=== PATIENT | male | born 1985 | race Caucasian/White ===

== ENCOUNTER 2018-11-17 23:29 | Emergency (ER) | payer BC, OTHER ==
[~2018-11-17] VITALS: Ht 172.7 cm; Wt 68.0 kg
[2018-11-17 23:44] VITALS: BP 122/80
--- NOTE | 2018-11-17 23:44 | NUR ---
ED Nurse Note: pt walked in c/o swelling, pain, and redness on right eye (eyelid) since night. pt states that he had an eyelash in the eye and was messing with it. it may have caused the irritation
--- NOTE | 2018-11-18 00:01 | Emergency Room Report ---
History of Present Illness General Chief Complaint: Eye Problems Source: Patient Present Illness HPI Patient presents with swelling, redness and slight itchiness of his right upper eyelid. This is been progressing for last 2 days. There is no discharge from the eye. There is no trauma. His vision is unchanged. Denies fever or chills. He is also had some swelling front of his right ear and feels that there might be a lymph node there. Pain is rated 8/10 more of the lymph node than the eye itself. Aching somewhat sharp. No medications taken. He has been using tea to treat the eye. Patient denies other medical problems. Allergies: Uncoded Allergies: POLLEN (Allergy, Unknown, 11/17/18) Patient History Past Medical History: see triage record Social History: Reports: smoking Social History Narrative works at [employer] Reviewed Nursing Documentation: PMH: Agreed; PSxH: Agreed Nursing Documentation-PMH Past Medical History: No Stated History Review of Systems Constitutional: Reports: see HPI Eye: Reports: see HPI ENT: Reports: see HPI Respiratory: Denies: cough Skin: Reports: see HPI Hematologic/Lymphatic: Reports: see HPI Physical Exam Vital Signs Date Time Temp Pulse Resp B/P (MAP) Pulse Ox O2 Delivery O2 Flow Rate FiO2 11/17/18 23:37 98.1 63 18 97 Room Air 11/17/18 23:44 122/80 Sp02 EP Interpretation: reviewed, normal General Appearance: well appearing, no apparent distress Head: normocephalic, atraumatic Eyes: right eye other - Upper lip swelling erythema and small area of pointing by the inner tarsal glands; bilateral eye PERRL, bilateral eye EOMI, bilateral eye visual acuity ENT: hearing grossly normal, normal voice Neck: full range of motion, supple Respiratory: no respiratory distress, speaking full sentences Gastrointestinal: scaphoid Musculoskeletal: digits/nails normal, gait/station normal Neurologic: alert, oriented x3, normal gait, grossly normal Psychiatric: mood/affect normal Skin: other - see eys exam Lymphatic: other - Preauricular node right Medical Decision Making Diagnostic Impression: Primary Impression: Stye Qualified Codes: H00.011 - Hordeolum externum right upper eyelid ER Course Patient presents with swelling and erythema of the right upper lid. Exam is consistent with this time. Is also inflammatory process of his previously noted. Antibiotics are indicated. Patient given a dose of ibuprofen. Patient stable for outpatient observation and treatment. Last Vital Signs Date Time Temp Pulse Resp B/P (MAP) Pulse Ox O2 Delivery O2 Flow Rate FiO2 11/18/18 00:06 98.1 63 18 122/80 97 Room Air Status: improved Disposition: HOME, SELF-CARE Condition: Improved Scripts Sulfacetamide Sodium (BLEPH-10) 5 Ml Drops 2 DROP OP Q6HR, #10 ML Prov: Cas Hutton MD 11/18/18 Cas Hutton MD November 18, 2018 00:01
[2018-11-18] MEDS ORDERED: BLEPH-105 ML OP (00:03)
[2018-11-18 00:06] VITALS: BP 122/80
--- NOTE | 2018-11-18 00:07 | NUR ---
ER DISCHARGE NOTE: Patient is cleared to be discharged per ERMD, pt is aox4, on room air, with stable vital signs. pt was given dc and prescription instructions, pt was able to verbalize understanding, pt id band removed. pt is able to ambulate with steady gait. pt took all belongings.
== END 2018-11-18 00:06 | disposition home or self-care (01) ==
LOC: EMR 23:55
DX: H00.11 Chalazion right upper eyelid (principal); F17.200 Nicotine dependence, unspecified, uncomplicated; Z91.048 Other nonmedicinal substance allergy status
CPT/HCPCS: 99281